=== PATIENT | male | born 1980 | race African-American/Black ===

== ENCOUNTER → 2016-12-20 | Outpatient (REF) | payer OTHER | LOC: M SMT 17:19 | PROVIDERS: ATTEND Nurse Practitioner Family | DX: N50.819 Testicular pain, unspecified (principal) ==

== ENCOUNTER → 2017-04-26 | Outpatient (REF) | payer OTHER | LOC: M LAB REF 13:16 | PROVIDERS: ATTEND Internal Medicine Gastroenterology | DX: K58.0 Irritable bowel syndrome with diarrhea (principal) ==

== ENCOUNTER → 2019-10-08 | Outpatient (CLI) | payer OTHER ==
--- NOTE | 2019-10-08 12:05 | REP ---
Clinical: Right shoulder pain . Technique: Internal rotation, external rotation, and Y view. Findings: No acute fracture or dislocation. The acromioclavicular and glenohumeral joints are intact. No periarticular calcifications or degenerative changes are appreciated. Sub acromial space is normal. Surrounding soft tissues are unremarkable. Impression: Normal right shoulder radiographs. Electronically Signed by Román Martin MD 10/08/2019 11:56 A
--- NOTE | 2019-10-08 12:07 | REP ---
Clinical: Neck pain . Technique: AP, lateral, flexion/extension, bilateral oblique, and open-mouth views. Findings: Alignment and lordosis is maintained. There is no evidence for acute fracture / compression injury or subluxation. Very minimal degenerative changes at C5-6 with endplate sclerosis, minimal disc space narrowing and anterior spurring noted. Oblique views demonstrate patent neural foramen. Open mouth view demonstrates normal C1-C2 articulation and odontoid process. Impression: Minimal focal degenerative changes at C5-6. Electronically Signed by Román Martin MD 10/08/2019 11:57 A
== END ==
LOC: M WUC 11:09
PROVIDERS: ATTEND Physician Assistant
DX: S13.4XXA Sprain of ligaments of cervical spine, initial encounter (principal); S43.401A Unspecified sprain of right shoulder joint, initial encounter; W18.30XA Fall on same level, unspecified, initial encounter; Y92.9 Unspecified place or not applicable

== ENCOUNTER 2020-07-06 15:52 | Emergency (ER) | payer OTHER ==
[~2020-07-06] VITALS: Ht 185.4 cm; Wt 109.1 kg
[2020-07-06] MEDS ORDERED: ACET-908 PO (16:05)
[2020-07-06] MEDS ORDERED: WELL100T2 PO (16:05)
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
[2020-07-06] MEDS ORDERED: CYCL-707 PO (18:00)
[2020-07-06] MEDS ORDERED: IBUP-1022 PO (18:00)
[2020-07-06 19:48] VITALS: BP 127/77
== END 2020-07-06 19:49 | disposition home or self-care (01) ==
LOC: M ED 15:52
DX: S06.0X0A Concussion without loss of consciousness, initial encounter (principal); S13.4XXA Sprain of ligaments of cervical spine, initial encounter; V48.5XXA Car driver injured in noncollision transport accident in traffic accident, initial encounter; Y92.410 Unspecified street and highway as the place of occurrence of the external cause; F41.9 Anxiety disorder, unspecified; F32.9 Major depressive disorder, single episode, unspecified; F17.200 Nicotine dependence, unspecified, uncomplicated; Z79.899 Other long term (current) drug therapy

== ENCOUNTER 2020-07-09 12:56 | Emergency (ER) | payer OTHER ==
[~2020-07-09] VITALS: Ht 188 cm; Wt 112.0 kg
[~2020-07-09 12:56] MED LIST: ACET-908 PO; CYCL-707 PO; IBUP-1022 PO; WELL100T2 PO
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
[2020-07-09 14:50] VITALS: BP 134/84
== END 2020-07-09 14:54 | disposition home or self-care (01) ==
LOC: M ED 12:56
DX: S06.0X0A Concussion without loss of consciousness, initial encounter (principal); V48.5XXA Car driver injured in noncollision transport accident in traffic accident, initial encounter; Y92.410 Unspecified street and highway as the place of occurrence of the external cause; G47.33 Obstructive sleep apnea (adult) (pediatric); F43.10 Post-traumatic stress disorder, unspecified; F41.9 Anxiety disorder, unspecified; F32.9 Major depressive disorder, single episode, unspecified; K58.9 Irritable bowel syndrome, unspecified; F17.210 Nicotine dependence, cigarettes, uncomplicated; Z79.899 Other long term (current) drug therapy